=== PATIENT | male | born 1960 | race Caucasian/White ===

== ENCOUNTER 2018-07-24 08:59 | Inpatient (IN) | payer MEDICAID ==
--- NOTE | 2018-07-24 09:36 | EDPHY ---
HPI/HX/ROS/PE/MDM Narrative: CHIEF COMPLAINT:Right foot pain and swelling HPI: This patient is a 57 year old male who denies any pertinent past medical history. He complains of right foot pain and swelling which increased suddenly this weekend. He attributed this to the fact that he was wearing different kitchen shoes than usual this weekend. He states that his feet are often swollen because he usually walks everywhere, but this is much more severe. He is unable to walk far now due to pain. He does have obvious erythema and excoriations to the foot, but when questioned he is unclear about whether these skin changes are chronic or acute. He complains that the pain now radiates up into his leg. He does note history of similar symptoms 30 years ago after an injury with resultant cellulitis and abscess. He denies fever, nausea, vomiting , diarrhea, chest pain, difficulty breathing, or other associated symptoms. REVIEW OF SYSTEMS: A comprehensive 10 system review of systems is otherwise negative aside from elements mentioned in the history of present illness and medical decision making. PMH: Denies. SOCIAL HISTORY: Single. Lives in [place]. PHYSICAL EXAM: General:Patient is alert, in no acute distress. Malodorous. ENT:Eyes are normal to inspection. ENT inspection normal. Neck: Normal inspection. Full range of motion. Respiratory:No respiratory distress. Breath sounds normal bilaterally. Cardiovascular: Regular rate and rhythm. Strong peripheral pulses. Normal cap refill. Abdomen:The abdomen is nontender to palpation. There are no peritoneal signs. There are normal bowel sounds. Back: Normal to inspection. No tenderness to palpation. Skin: Normal color. No rash. Warm and dry. Extremities: Right foot: Diffusely swollen and erythematous, excoriation and weeping of skin on dorsum of foot, lymphatic streaking up leg. Otherwise normal appearance of extremities. Full range of motion. Neuro: Oriented x3. Normal motor function. Normal sensory function. ED Course: 57 y/o male presents with right foot pain and swelling. On exam, the foot is diffusely swollen and erythematous, with excoriation and weeping of the skin on the dorsum of the foot and lymphatic streaking up the leg. Presentation consistent with cellulitis. Plan for labs including CBC, chemistries. Plan for x -ray of the right foot. Reviewed foot x-ray. Soft tissue swelling apparent, no evidence of acute osseous abnormalities. Reviewed laboratory studies. WBC elevated at 15,000. Plan to administer 1g IV Vancomycin. Reassessed patient. Discussed laboratory and imaging results. Plan to admit for cellulitis. 10:28 Spoke with hospitalist service. Dr. Abdullahi accepts admission for foot cellulitis. - Data Points Imaging Results: Imaging Impressions Foot X-Ray 07/24/18 09:47 Impression: 1. Soft tissue swelling with no acute osseous findings 2. Hallux valgus with mild osteoarthritis. Imaging: I viewed and interpreted images myself Laboratory Results: Laboratory Results 07/24/18 09:38 07/24/18 09:38 07/24/18 07/24/18 09:38 09:38 WBC 15.20 10^3/uL H 10^3/uL (3.80-9.50) RBC 4.29 10^6/uL L 10^6/uL (4.40-6.38) Hgb 15.8 g/dL g/dL (13.7-17.5) Hct 47.0 % % (40.0-51.0) MCV 109.6 fL H fL (81.5-99.8) MCH 36.8 pg H pg (27.9-34.1) MCHC 33.6 g/dL g/dL (32.4-36.7) RDW 13.2 % % (11.5-15.2) Plt Count 242 10^3/uL 10^3/uL (150-400) MPV 9.1 fL fL (8.7-11.7) Neut % (Auto) 88.3 % H % (39.3-74.2) Lymph % (Auto) 3.4 % L % (15.0-45.0) Pacific % (Auto) 7.6 % % (4.5-13.0) Eos % (Auto) 0.1 % L % (0.6-7.6) Baso % (Auto) 0.3 % % (0.3-1.7) Nucleat RBC Rel Count 0.0 % % (0.0-0.2) Absolute Neuts (auto) 13.42 10^3/uL H 10^3/uL (1.70-6.50) Absolute Lymphs (auto) 0.52 10^3/uL L 10^3/uL (1.00-3.00) Absolute Monos (auto) 1.16 10^3/uL H 10^3/uL (0.30-0.80) Absolute Eos (auto) 0.02 10^3/uL L 10^3/uL (0.03-0.40) Absolute Basos (auto) 0.05 10^3/uL 10^3/uL (0.02-0.10) Absolute Nucleated RBC 0.00 10^3/uL 10^3/uL (0-0.01) Immature Gran % 0.3 % % (0.0-1.1) Immature Gran # 0.05 10^3/uL 10^3/uL (0.00-0.10) RBC/WBC/PLT Morphology TNP Platelet Estimate ADEQUATE (ADEQ) Oval Macrocytes 2+ H Sodium 136 mEq/L mEq/L (135-145) Potassium 4.2 mEq/L mEq/L (3.5-5.2) Chloride 97 mEq/L mEq/L (97-110) Carbon Dioxide 19 mEq/l L mEq/l (22-31) Anion Gap 20 mEq/L H mEq/L (6-14) BUN 14 mg/dL mg/dL (7-23) Creatinine 0.7 mg/dL mg/dL (0.7-1.3) Estimated GFR > 60 Glucose 100 mg/dL mg/dL (70-100) Calcium 9.2 mg/dL mg/dL (8.5-10.4) Medications Given: Discontinued Medications Vancomycin/Sodium Chloride (Vancomycin 1 Gm (Premix)) 250 mls @ 250 mls/hr IV EDNOW ONE PRN Reason: Protocol Stop: 07/24/18 11:14 Last Admin: 07/24/18 10:20 Dose: 250 mls General Time Seen by Provider: 07/24/18 09:08 Initial Vital Signs: Initial Vital Signs Temperature (C) 37.1 C 07/24/18 09:13 Heart Rate 114 H 07/24/18 09:13 Respiratory Rate 16 07/24/18 09:13 Blood Pressure 123/95 H 07/24/18 09:13 O2 Sat (%) 96 07/24/18 09:13 O2 Delivery Mode Room Air Allergies/Adverse Reactions: No Known Allergies Allergy (Verified 07/24/18 10:56) Home Medications: Medication Instructions Recorded NK [No Known Home Meds] 07/24/18 Departure - Departure Disposition: [facility] Inpatient Acute Clinical Impression: Cellulitis Qualifiers: Site of cellulitis: extremity Site of cellulitis of extremity: lower extremity Laterality: right Qualified Code(s): L03.115 - Cellulitis of right lower limb Condition: Fair Report Scribed for: Danish Lehman Report Scribed by: Kimberley Anthony Date of Report: 07/24/18 Time of Report: 10:24 Physician Review and Approval Statement: Portions of this note were transcribed by an ED scribe. I personally performed the history, physical exam, and medical decision making; and confirm the accuracy of the information in the transcribed note.
[2018-07-24 09:45] LABS: PLATELET COUNT 242 10^3/uL (150-400)
[2018-07-24] MEDS ORDERED: VANCOMYCIN HCL/NORMAL SALINE 250 ML IV ONE (10:15)
[2018-07-24] MEDS ORDERED: IBUPROFEN 200 MG TAB PO PRN (13:08)
[2018-07-24] MEDS ORDERED: ONDANSETRON DISINTEGRATING 4 MG TAB PO PRN (13:08)
[2018-07-24] MEDS ORDERED: HYDROCODONE/APAP 5/325 TAB PO PRN (13:08)
[2018-07-24] MEDS ORDERED: ONDANSETRON 4 MG/2 ML VIAL IVP PRN (13:08)
[2018-07-24] MEDS ORDERED: ACETAMINOPHEN 325 MG TAB PO PRN (13:08)
--- NOTE | 2018-07-24 14:31 | GHP ---
[f rep st] HISTORY AND PHYSICAL DATE OF ADMISSION: 07/24/2018 CHIEF COMPLAINT: Right foot pain and swelling. HISTORY OF PRESENT ILLNESS: The patient is a 57-year-old man, who is homeless, who comes in with inc reasing right foot pain. He states he is on his feet a lot and works in [employer] primarily. He was wearing a pair of shoes a few weeks ago that did not fit right and were quite uncomfortable. He star prema having more pain and swelling in his right lower extremity. He said he got a new pair of Crocs 2 weeks ago and initially his foot pain improved. However, over the weekend, the pain got worse with increasing swelling and discomfort to a point where he was having difficulty putting the Crocs on his foot. He denies any fevers, chills. No malaise. No nausea, vomiting, he states he otherwise feels well. He has a remote history of a staph infection on his left lower duncan, cannot recall if it was MRSA or not. He had a previous episode of cellulitis on his foot many years ago. REVIEW OF SYSTEMS: A 10-point review of systems was done and is otherwise negative except as stated in the HPI. PAST MEDICAL HISTORY: Negative. PAST SURGICAL HISTORY: Negative. FAMILY HISTORY: Both parents of cancer. SOCIAL HISTORY: He is currently homeless and lives in a snf. 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 He smokes about a pack a day. Alcohol use, he admits to 2 beers every day, but then did admit to drinking a half a pint of vodka last night to help him sleep. He denies any recreational drug use or any previous IV drug use. He h ad a recent tetanus shot within the last year. ALLERGIES: He has no known allergies. MEDICATIONS: None. PHYSICAL EXAMINATION: VITAL SIGNS: He has been afebrile. Heart rate 113. Blood pressure 133/83. Respirations 16 with 94% on room air. GENERAL: He is a disheveled, unkempt, 57-year-old man. He is in no distress. He is alert. HEENT: Pupils are equal. Extraocular movements intact. Mucous memb ranes are moist. Oropharynx is clear. NECK: Supple. HEART: Regular without murmur, gallop, or ru b. LUNGS: Clear. Slightly diminished bilaterally, but no wheeze, rales, or rhonchi. ABDOMEN: Sof t. No masses. MUSCULOSKELETAL: He has no joint deformities or effusions noted. SKIN: He has exco riations and dry skin on his right foot with weeping and serous drainage throughout the dorsum aspect . In between his toes, he has some cracking. No obvious abscesses noted. He does have some erythem a extending up his duncan in a streaking-like manner. His left foot, he does have some dry, cracked sk in on the medial dorsum surface as well, but no weeping noted on that foot. Pulses intact bilaterall y. LYMPH NODES: He does have some tender lymphadenopathy in his right groin. NEUROLOGIC: He does have slight diminished sensation on both of his feet that has been chronic. PSYCHIATRIC: He is aler t, appropriate, although his history is a little bit scattered and difficult to obtain. LABORATORY DATA: CBC shows a white count of 15.2 with a hemoglobin of 15.8 and an MCV of 109.6 and n ormal platelet count. Chemistries do show CO2 of 19, normal renal function. DIAGNOSTICS: Foot x-ray on the right foot shows soft tissue swelling with no acute osseous findings. ASSESSMENT AND PLAN: 1. 57-year-old homeless man, probable alcoholic, presents with cellulitis and multiple excoriations and weeping areas on his right dorsum of his foot. He is at risk for Staphylococcus aureus given his homelessness, as well as the open sores noted on his foot. We will continue vancomycin and can cruz sition to oral antibiotics to include both streptococcal and staphylococcal coverage at the time of d ischarge should he improve significantly on intravenous antibiotics. If he does not have significant improvement in the next 24 to 48 hours, would consider Infectious Disease consult. 2. Macrocytosis without anemia, unclear etiology. We will check a vitamin B12, folate, and TSH. Jurgen dupree, I suspect he is an alcoholic and drinks more significantly than he is admitting to at this [facility]. We will watch for evidence of withdrawal. However, we will not put him on the Clinical [place] Withdrawal Assessment protocol at this time. 3. Ongoing tobacco use. 4. Homelessness. Patient is quite unkempt at this time, and his work history and social history do not quite match. He will need to establish care with [facility] at the time of discharge for fo llow-up needs. 5. Cellulitis of his right foot with mild sepsis as noted by tachycardia and leukocytosis. /[id number]/MODL
[2018-07-24] MEDS: VANCOMYCIN 1.25 GM in NS 250 ML IV SCH (21:47)
[2018-07-25 05:08] LABS: PLATELET COUNT 231 10^3/uL (150-400)
[2018-07-25] MEDS: VANCOMYCIN 1.25 GM in NS 250 ML IV SCH ×2 (10:17→21:46)
[2018-07-25] MEDS: ENOXAPARIN 40 MG/0.4 ML SYR SC SCH (10:24)
--- NOTE | 2018-07-25 13:10 | ASMTCMCOM ---
CM Note CM Note Notes: Pt who is homeless in with foot cellulitis, reports daily ETOH use. PT eval pending. Pt on IV vanco now, will see if he improves and may be able to d/c on oral antibiotics. ID not consulted yet. Pt may want [facility] bed and follow up at [facility]. CM to follow. D/c plan is TBD Date Signed: 07/25/2018 01:10 PM Electronically Signed By:JORY Kiser
--- NOTE | 2018-07-25 13:39 | HOSPPROG ---
Hospitalist Progress Note Assessment/Plan: 57-year-old homeless male presents the emergency room with complaints of foot wound. 1st encounter with the patient, chart reviewed. # right lower extremity foot wound -continue IV vancomycin -wound culture sent -Infectious Disease consult, discussed with Dr. Maximo Hills -continue wound care # pain -stable # macrocytosis without anemia -B12 folate normal -unclear etiology -potentially related alcohol use # tobacco abuse -recommend cessation # disposition -unclear -will need to provide continued IV antibiotic therapy -continue wound care Subjective: Still having significant right lower extremity pain. No other issues. Objective: Vital Signs Temp Pulse Resp BP Pulse Ox 36.7 C 86 16 106/70 92 07/25/18 11:55 07/25/18 11:55 07/25/18 11:55 07/25/18 11:55 07/25/18 11:55 Laboratory Results 07/25/18 04:26 07/25/18 04:26 07/24/18 07/25/18 07/26/18 05:59 05:59 05:59 Intake Total 1600 Balance 1600 - Physical Exam Constitutional: appears nourished, uncomfortable, No obese Eyes: PERRL, anicteric sclera, EOMI Ears, Nose, Mouth, Throat: moist mucous membranes, hearing normal, ears appear normal Cardiovascular: regular rate and rhythym, No JVD, No edema Respiratory: no respiratory distress, no rales or rhonchi, reduced air movement Gastrointestinal: normoactive bowel sounds, No tenderness, No ascites Skin: warm, abrasion, erythema, induration Musculoskeletal: normal joint ROM, no joint effusions, generalized weakness Neurologic: AAOx3 Psychiatric: interacting appropriately, not anxious, not encephalopathic, thought process linear ICD10 Worksheet Patient Problems: Problems Problem Status Onset Cellulitis Acute
--- NOTE | 2018-07-25 14:36 | WOCRNPDOC ---
WOCRN Advanced Assessment Note - Skin Integrity Problem, Advanced Assess Right Dorsal Foot Dressing Type: Adaptic Touch Dressing Description: Intact, Shadowed Exudate Amount: Scant Exudate Characteristic(s): Serosanguinous Integumentary Issue Intervention: Dressing Changed Sally Wound Tissue: Hot, Swollen, Erythema Marked by Wound RN Sally Wound Swelling: Mild Wound Bed Constitution: Red/Lovell - Non Granular Tissue (100%) Wound Edges: Attached Site Odor: Slight, Musky Site Measurement - Head-to-Toe Length X Width X Depth (cm): [id number] Skin Integrity Problem Comment: Per patient report area of skin on dorsal foot started denuding over the last week. The area did not blister first. Patient reported that a pair of shoes rubbed on right lateral 5th metatarsal head and caused an open wound. That area is swollen and tender now. The wound on the dorsal foot is also painful, and has areas of partial thickness opening mixed in with intact skin. The area was cleaned with ns and gauze. Skin prep was applied sally wound. Small area of maceration between 1st and 2nd digit in the web of the toe was clean and also skin prepped. Puracyn gel applied to wound bed. Covered with Mepilex XT dressing. Secured with Kong. Wound care will follow. Arash LIN performed wound care. Dr. Hills visualized wound.
--- NOTE | 2018-07-25 16:10 | GCON ---
[f rep st] CONSULTATION INFECTIOUS DISEASE CONSULTATION DATE OF CONSULTATION: 07/25/2018 REFERRING PHYSICIAN: Katharine Hamilton NP REASON FOR CONSULTATION: Right lower extremity cellulitis. HISTORY OF PRESENT ILLNESS: The patient is a 57-year-old homeless male who I am asked to see in consultation for right lower extremity cellulitis. The patient describes wearing a shoe that he felt was too tight recently and developed excessive rubbing over the lateral aspect of the right foot. This subsequently also involved the medial portion of the foot. He also describes approximately 2 weeks ago experiencing exposure to snow and slush when walking to and from work. Over the last week, he has developed breakdown of skin over the dorsal aspect of the foot accompanied by erythema, pain and swelling. Subsequently, he also noted a red streak over the right lower leg. He also has noted a small tender area in the right inguinal region. He has not experienced fever or chills. He has not had nausea, vomiting, or diarrhea. He has not been elevating his leg significantly. 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 The right foot has also been associated with malodor. Given the above findings, I am now asked to assist in his ongoing management. PAST MEDICAL HISTORY: Staph infection of the left lower extremity approximately 30 years ago, right foot infection after dropping marble on his foot many years ago; denies any prior history of known MRSA skin and soft tissue infection. PAST SURGICAL HISTORY: Incision and drainage of right foot. CURRENT MEDICATIONS: Vancomycin 1.25 g IV q.12 hours, Lovenox 40 mg subcu daily , Motrin 400 mg as needed every 4 hours. ALLERGIES: No known drug allergies. SOCIAL HISTORY: Patient smokes 1/2 pack per day. The patient notes that he drinks alcohol in moderation. No drug use history. He works in restaurants. He is currently homeless and does stay at the care home. FAMILY HISTORY: Mother with brain tumor of unclear further characterization. REVIEW OF SYSTEMS: Outside that noted in the HPI, the remainder of 10-system review is unremarkable. PHYSICAL EXAMINATION: VITAL SIGNS: Temperature 36.7, heart rate 86, respiratory rate 16, blood pressure 106/70, oxygen saturation 92% on room air. GENERAL: Patient is well nourished, well developed, in no acute distress. He appears nontoxic. HEENT: There is no scleral icterus, conjunctival injection, or conjunctival petechiae. Oropharynx shows moist mucous membranes with dentition being in poor repair. No nasal discharge or sinus tenderness. NECK: Supple without palpable lymphadenopathy or thyromegaly. CHEST: Clear to auscultation bilaterally without adventitious sounds. The respiratory effort is normal. CARDIOVASCULAR: Regular rate and rhythm without murmurs, gallops, or rubs. ABDOMEN: Soft, nontender, nondistended. There is no palpable organomegaly. Bowel sounds are present. MUSCULOSKELETAL: The right foot shows erythema, edema and multiple areas of denuded skin overlying the dorsal aspect of the foot without purulent discharge being present; there is some maceration extending into the web spaces of the toes with mild crusting at margins. There is mild malodor present. There is no palpable fluctuance. Erythema extends in a lymphangitic distribution along the right lower leg which is nontender to palpation. LYMPHATICS: See musculoskeletal exam. There is a 1 x 2 cm mobile, tender lymph node in the right inguinal region. NEUROLOGIC: Patient is alert and interacts appropriately with examiner. Cranial nerves 2 through 12 are grossly intact. Sensation is grossly intact. Muscle tone and bulk are normal. SKIN: See musculoskeletal exam. No stigmata of endocarditis. Skin is warm and dry to touch. LABORATORY DATA: White blood cell count 8.9, hematocrit 42.6, platelets 231, neutrophils 70%, and lymphocytes 14%, monocytes 13%. Serum creatinine 0.8, AST 47, ALT 49, bilirubin 1.6, alkaline phosphatase 81, albumin 3.6. Foot x-ray shows soft tissue swelling. IMPRESSION: 1. Right lower extremity cellulitis with accompanying lymphangitis: Most likely, this will be due to Staphylococcus aureus or beta-hemolytic streptococci. Given the patient's homelessness, methicillin-resistant Staphylococcus aureus is of consideration despite lack of purulent drainage. Suspect patient may have developed maceration when his foot was wet, leading to subsequent skin and soft tissue infection. Does not appear to have a drainable focus present on physical examination. 2. Homelessness: We will screen for hepatitis A immunity, given local prevalence of hepatitis A infection. RECOMMENDATIONS: 1. Agree with vancomycin 1.25 g IV q.12 hours. 2. Right lower extremity elevation. 3. We will check hepatitis A total antibody to assess for immunity with plans for vaccination if not immune. 4. Swab obtained to screen for MRSA colonization of right lower extremity. Thank for this consultation. We will continue to follow patient with you. /[id number]/MODL MTDD
[2018-07-26 09:31] LABS: HEPATITIS A ANTIBODY TOTAL NEGATIVE (NEGATIVE)
[2018-07-26] MEDS: ENOXAPARIN 40 MG/0.4 ML SYR SC SCH (09:53)
[2018-07-26] MEDS: VANCOMYCIN 1.25 GM in NS 250 ML IV SCH (09:56)
--- NOTE | 2018-07-26 12:53 | HOSPPROG ---
Hospitalist Progress Note Assessment/Plan: 57-year-old homeless male presents the emergency room with complaints of foot wound. 1st encounter with the patient, chart reviewed. # right lower extremity foot wound w associated lymphangitis (MRSA) -continue IV vancomycin -continue wound care -reviewed her care w Dr Rivera, he will ask Dr Mcdowell to evaluate Brandon's foot, has some purulent drainage # pain -has pain w ambulation but overall controlled # macrocytosis without anemia -B12 folate normal -unclear etiology -potentially related alcohol use # tobacco abuse -recommend cessation -doesn't want a patch or gum *homelessness #plan: Dr Mcdowell to see (appreciate her involvement), contact precautions. Subjective: Brandon is feeling fine except for some difficulty w walking. Objective: Vital Signs Temp Pulse Resp BP Pulse Ox 36.7 C 93 16 113/93 H 95 07/26/18 07:48 07/26/18 07:48 07/26/18 07:48 07/26/18 07:48 07/26/18 07:48 Microbiology 07/25/18 14:06 Gram Stain - Final Foot - Swab 07/25/18 14:06 MRSA Culture - Final Foot - Anaerobic Tube/Swab - Physical Exam Constitutional: uncomfortable Eyes: PERRL Ears, Nose, Mouth, Throat: hearing normal Respiratory: no respiratory distress Skin: warm, other (right foot w dressing in place, has some lymphangitic streaking up the duncan area) Musculoskeletal: generalized weakness Neurologic: AAOx3 Psychiatric: interacting appropriately ICD10 Worksheet Patient Problems: Problems Problem Status Onset Cellulitis Acute
--- NOTE | 2018-07-26 15:30 | PCMIDPN ---
Assessment/Plan: Assessment: 57-year-old man with right foot deep soft tissue infection likely due to MRSA. Spontaneous drainage of purulent material lateral aspect of the 5th metatarsal head on the right suggest organization of deep infected tissue potentially forming an abscess. Asked surgery to evaluate for potential debridement. Overall he remains hemodynamically stable will increase vancomycin slowly due to the presence of MRSA. 1. Right foot deep soft tissue infection likely due to MRSA 2. Possible lateral right foot deep tissue abscess with spontaneous drainage Plan: 1. Continue vancomycin; increase dose to 1.5 g q.12 hours 2. Surgical consult to evaluate for need for debridement particularly considering purulent drainage 3. Reviewed in detail potential side effects of vancomycin to include: allergy, rash, nausea, antibiotic-associated diarrhea, Clostridioides difficile colitis, acute kidney injury. Ayaan Rivera MD Infectious Diseases 07/26/18 15:34 Subjective: No fever or chills in the past 24-hours. Tolerating oral diet with solids and liquids. No diarrhea, nausea, or other GI symptoms. Appetite improving. Ambulating with with pain in the right foot primarily the 1st few steps. Improved since admission but not back to baseline health. Objective: Vital Signs Temp Pulse Resp BP Pulse Ox 36.7 C 93 16 113/93 H 95 07/26/18 07:48 07/26/18 07:48 07/26/18 07:48 07/26/18 07:48 07/26/18 07:48 Microbiology 07/25/18 14:06 Gram Stain - Final Foot - Swab 07/25/18 14:06 MRSA Culture - Final Foot - Anaerobic Tube/Swab Medications Generic Name Dose Route Start Last Admin Trade Name Freq PRN Reason Stop Dose Admin Vancomycin HCl 1.25 gm/ Sodium 250 mls @ 166.667 mls/hr 07/24/18 22:00 09:56 Chloride IV 08/23/18 21:59 250 mls Q12H [facility] Microbiology 07/25/18 14:06 Foot - Swab Gram Stain - Final 07/25/18 14:06 Foot - Anaerobic Tube/Swab MRSA Culture - Final 07/25/18 14:06 Foot - Swab Wound Culture - Preliminary MRSA Laboratory Tests 07/24/18 07/24/18 07/25/18 09:38 09:38 04:26 WBC 15.20 H 8.88 Hgb 15.8 14.8 Plt Count 242 231 Absolute Neuts (auto) 13.42 H 6.20 Absolute Lymphs (auto) 0.52 L 1.28 Creatinine 0.7 Vancomycin Trough 07/25/18 07/25/18 04:26 21:00 WBC Hgb Plt Count Absolute Neuts (auto) Absolute Lymphs (auto) Creatinine 0.8 Vancomycin Trough 8.2 - Physical Exam General Appearance: no apparent distress, non-toxic EENT: No scleral icterus Respiratory: No respiratory distress, No accessory muscle use Neck: full range of motion, supple Extremities: other (Lateral right foot at the 5th metatarsal head spontaneous drainage of purulent material, increased drainage with movement of the toe; no expressible purulence from the area; dorsum of the foot dressing not taken down to completion but deep soft tissue infection evident) Abdomen: normal bowel sounds, non-tender, soft, No distended, No guarding Skin: erythema (Right dorsum of the foot spreading proximally to the ankle) Neuro/Psych: alert, normal mood/affect, oriented x 3, No confused - Time Spent With Patient Time Spent with Patient: greater than 25 minutes Time Spent with Patient: Greater than 25 minutes spent on this patients care, greater than 50% of time spent counseling, educating, and coordinating care regarding the above mentioned plan. ICD10 Worksheet Patient Problems: Problems Problem Status Onset Cellulitis Acute
--- NOTE | 2018-07-26 16:02 | ASMTCMCOM ---
CM Note CM Note Notes: Met with pt, he was admitted to the hospital for foot cellulitis, due to ill fitting shoes he developed a foot wound that got infected. He is a homeless gentleman, [facility] and has been through [facility], although he doesn't always want to stay there and will go to other places. He does not have a pcp and does not have much of a past medical history. For a discharge plan, he may want a reserved bed at the jail. The physical therapist has given him a pair of crutches to use and he has an appt scheduled for at 11am with Mellissa Amaro at [facility]. DC Plan: Jail Date Signed: 07/26/2018 04:01 PM Electronically Signed By:Olga Harp RN
--- NOTE | 2018-07-26 16:20 | PDMN ---
Medical Necessity Medical necessity: Change to IP, as of 07/25/18, per [employer] [facility] & [facility]; los >2 mn for ongoing management of RLE foot infection likely r/t MRSA w/possible deep tissue abscess & significant pain; requiring further monitoring, IV abx, ID/Surgical consults, pain management & wound care; hx homelessness
--- NOTE | 2018-07-26 17:43 | SOAPPROG ---
SOAP Progress Note Assessment/Plan: Assessment: will dictate full consult pain out of proportion fluid from 5th met head wound no osteo on x ray MRI to see if underlying abscess - I think due to pain would need I&D in OR and would like better pre-operative planning Plan: 07/26/18 17:42 Objective: Vital Signs Temp Pulse Resp BP Pulse Ox 36.8 C 72 16 120/84 H 96 07/26/18 16:00 07/26/18 16:00 07/26/18 16:00 07/26/18 16:00 07/26/18 16:00 Microbiology 07/25/18 14:06 Gram Stain - Final Foot - Swab 07/25/18 14:06 MRSA Culture - Final Foot - Anaerobic Tube/Swab ICD10 Worksheet Patient Problems: Problems Problem Status Onset Cellulitis Acute
--- NOTE | 2018-07-26 19:04 | GCON ---
[f rep st] CONSULTATION DATE OF CONSULTATION: 07/26/2018 CHIEF COMPLAINT: Acute MRSA cellulitis of right lower extremity; weeping of open wounds of plantar surface of right foot. HISTORY OF PRESENT ILLNESS: This is a very pleasant 57-year-old gentleman who states that he has had increasing foot pain over the last week or so. 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 He reports that he has had issues with his shoes rubbing, but in the past week or so he has noticed increasing pain where his shoes rub on his pinky toe. This progressed to swelling, erythema and open, weeping wounds on the plantar surface of his right foot, for which he presented to the ED. REVIEW OF SYSTEMS: He denies fevers, chills, sweats/night sweats, malaise, or nausea or vomiting. PAST MEDICAL HISTORY: He reports a history of Staphylococcus (unknown if MSSA or MRSA) on chin; cellulitis of the foot; tetanus shot within the last year, per ED. PAST SURGICAL HISTORY: None. FAMILY MEDICAL HISTORY: His parents of cancer. 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 He is currently homeless, living at a care home. He reports being very active, hiking when not working and preferring walking as his primary means of travel. Per ED report, the patient smokes 1 pack-a-day and reports drinking 2 beers daily. There was an incident of drinking a half-pint of vodka to "help him sleep." ALLERGIES: No known drug allergies. MEDICATIONS: None. PHYSICAL EXAMINATION: VITAL SIGNS: On exam, blood pressure 120/84, heart rate 72, respirations 16, O2 is 96, temperature 36.8. GENERAL: This is a very pleasant, well-nourished and relatively well-groomed 57-year-old gentleman. HEENT: Normocephalic. No gross hearing deficits. Mucous membranes moist. Pupils are equal and round, no scleral icterus. RESPIRATORY: No increased work of breathing. CARDIAC: No peripheral edema. SKIN: The patient has open , weeping wounds across the plantar surface of the right foot. The wound measures 11 cm x 13 cm x 0.01 cm length, width, depth. The patient has minimal serosanguinous exudates from these wounds. The patient also has a callus-like wound on the lateral surface of the pinky toe. There appears to be purulent exudate that oozes when patient wiggles toes or moves. I attempted to probe this area with a Q-tip, but it was too painful for the patient. PSYCHIATRIC: Mood and affect normal. ASSESSMENT/PLAN: This is a 57-year-old gentleman who appears to have an acute infection of what could potentially be a chronic wound secondary to ill-fitting footwear. I would like to get an MRI to evaluate if underlying abscess vs phlegmon vs osteonear the 5th metatarsal. Although I would like to do bedside debridement if possible, I am concerned that he will not be able to tolerate even an injection. Continue antibiotics per Infectious Disease. Dressing changes per Wound Care. Continue management per hospitalist team. /[id number]/MODL MTDD
[2018-07-26] MEDS ORDERED: GADOBUTROL 10 ML VIAL IVP ONE (20:37)
[2018-07-26] MEDS: VANCOMYCIN 1.5 GM in NS 250 ML IV SCH (22:59)
[2018-07-27] MEDS ORDERED: BUPIVACAINE 0.5% 30 ML SDV ONE (07:59)
[2018-07-27] MEDS ORDERED: LR 1,000 ML IV ONE (08:12)
--- NOTE | 2018-07-27 08:42 | PDANEPAE ---
ANE History of Present Illness I&D R foot ANE Past Medical History - Pulmonary History Hx Oxygen in Use at Home: No Hx Sleep Apnea: No Sleep Apnea Screening Result - Last Documented: Negative - Endocrine History Hx Diabetes: No - Chronic Pain History Chronic Pain: No ANE Review of Systems Review of systems is: negative Review of Systems: - Exercise capacity Exercise capacity: >=4 METS ANE Patient History - Allergies Allergies/Adverse Reactions: No Known Allergies Allergy (Verified 07/24/18 10:56) - Home Medications Home Medications: NK [No Known Home Meds] 07/24/18 [Last Taken Unknown] - NPO status NPO Status: no food or drink >8 hours NPO Since - Liquids (Date): 07/27/18 NPO Since - Liquids (Time): 00:00 NPO Since - Solids (Date): 07/27/18 NPO Since - Solids (Time): 00:00 - Smoking Hx Smoking Status: Current every day smoker - Alcohol Use Alcohol Use: None ANE Labs/Vital Signs - Labs Result Diagrams: 07/25/18 04:26 07/25/18 04:26 - Vital Signs Blood Pressure: 121/85 Heart Rate: 89 Respiratory Rate: 16 O2 Sat (%): 95 Height: 185.42 cm Weight: 78.2 kg ANE Physical Exam - Airway Neck exam: FROM Mallampati Score: Class 2 - Pulmonary Pulmonary: no respiratory distress - Cardiovascular Cardiovascular: regular rate and rhythym ANE Anesthesia Plan Anesthesia Plan: MAC
[2018-07-27] MEDS ORDERED: PROPOFOL/EMULSION 500 MG/50 ML BOTTLE IV ONE ×2 (08:50→09:24)
[2018-07-27] MEDS ORDERED: LIDOCAINE 2% JELLY 6 ML TOPICAL SYR ONE (08:51)
[2018-07-27] MEDS ORDERED: LIDOCAINE 2% 100 MG/5 ML SYR ONE (08:51)
--- NOTE | 2018-07-27 09:26 | POSTOPPROG ---
Post Op Note Date of Operation: 07/27/18 Surgeon: Radha Mcdowell Anesthesiologist: angel Anesthesia: IV Sedation Pre-op Diagnosis: MRSA abscess Post-op Diagnosis: same Indication: 57yo M with MRSA abscess R 5th toe, pain out of proportion Procedure: I&D R 5th toe Findings: small fluid collection, no bone exposed.no purulence Inf/Abcess present in the surg proc area at time of surgery?: Yes Depth: Superfical (Skin SQ) EBL: Minimal Complications: none immediately post-op Specimen(s): none
[2018-07-27] MEDS ORDERED: PHENYLEPHRINE HCL 100 MCG/ML SYR IVP PRN (09:43)
[2018-07-27] MEDS ORDERED: LR 500 ML IV PRN (09:43)
[2018-07-27] MEDS ORDERED: oxyCODONE IR 5 MG TAB PO PRN (09:43)
[2018-07-27] MEDS ORDERED: ACETAMINOPHEN 500 MG TAB PO PRN (09:43)
[2018-07-27] MEDS ORDERED: NALOXONE HCL 0.4 MG/ML INJ IVP PRN (09:43)
[2018-07-27] MEDS ORDERED: ONDANSETRON 4 MG/2 ML VIAL IVP PRN (09:43)
[2018-07-27] MEDS ORDERED: DEXAMETHASONE 4 MG/ML VIAL IVP PRN (09:43)
[2018-07-27] MEDS ORDERED: fentaNYL 100 MCG/2 ML INJ IVP PRN (09:43)
[2018-07-27] MEDS ORDERED: ALBUTEROL 3 ML DEYVIAL IH PRN (09:43)
--- NOTE | 2018-07-27 09:59 | POSTANESTH ---
Post Anesthetic Evaluation Cardiovascular Status: Normal, Stable, Similar to Pre-Op Cond Respiratory Status: Normal, Stable, Similar to Pre-op Cond. Level of Consciousness/Mental Status: Can Participate in Eval, Mildly Sleepy, Arousable Pain Control: Adequate, Prn Tx Ordered Nausea/Vomiting Control: Adequate, Prn Tx Ordered Complications Possibly Related to Anesthesia: None Noted
[2018-07-27] MEDS ORDERED: HEPATITIS A VIRUS VACCINE 1,440 UNIT/ML SYRINGE IM ONE (10:05)
[2018-07-27] MEDS: VANCOMYCIN 1.5 GM in NS 250 ML IV SCH ×2 (10:40→22:19)
[2018-07-27] MEDS: ENOXAPARIN 40 MG/0.4 ML SYR SC SCH (11:39)
--- NOTE | 2018-07-27 13:08 | WOCRNPDOC ---
WOCRN Advanced Assessment Note - Skin Integrity Problem, Advanced Assess Right Dorsal Foot Dressing Type: Kerlix, Telfa Dressing Description: Intact, Shadowed Closure Description: Not Approximated Exudate Amount: Scant Exudate Color: Reddish/Yellow Exudate Characteristic(s): Serosanguinous Integumentary Issue Intervention: Dressing Changed, Hydrogel Applied Radha Wound Tissue: Erythema, Painful/Tender Radha Wound Swelling: Mild Wound Bed Color: Leith-Hatfield Wound Bed Constitution: Smooth Tissue Wound Edges: Attached, Well Defined, Irregular Site Measurement - Head-to-Toe Length X Width X Depth (cm): 12x11.5x0.2 Skin Integrity Problem Comment: Patient had an I&D of right foot in the OR with Dr. Mcdowell this AM. Seen with RILEY Ha for application of alternate dressing per Dr. Mcdowell request. Both RILEY Ha and the patient report significant improvement to redness radha-wound as well as improvement to wound bed s/p I&D. As I don't see any further infective process, will change order from Puracyn to wound gel ( found in all supply rooms). Wound care will round again later next week. Right Lateral Distal Foot Surgical Wound/Incision Dressing Type: Kerlix, Telfa Dressing Description: Intact, Shadowed Closure Description: Not Approximated Exudate Amount: Minimal Exudate Color: Red Exudate Characteristic(s): Bloody Integumentary Issue Intervention: Dressing Changed, Hydrogel Applied Radha Wound Tissue: Erythema, Painful/Tender Radha Wound Swelling: Mild Wound Bed Color: Red Wound Bed Constitution: Smooth Tissue Wound Edges: Attached, Well Defined Site Measurement - Head-to-Toe Length X Width X Depth (cm): 1x1.5x0.2 Skin Integrity Problem Comment: Patient s/p I&D in the OR this AM with Dr. Mcdowell. Assisted RILEY Ha with dressing change and application of wound gel. Wound bed probed for depth which is minimal, no tunneling. Wound care will round again later next week.
--- NOTE | 2018-07-27 13:25 | HOSPPROG ---
Hospitalist Progress Note Assessment/Plan: 57-year-old homeless male presents the emergency room with complaints of foot wound. # right lower extremity foot wound w associated lymphangitis (MRSA) -continue IV vancomycin -s/p I & D with Dr Mcdowell -no osteo on imaging # pain -has pain w ambulation but overall controlled # macrocytosis without anemia -B12 folate normal -potentially related alcohol use # tobacco abuse -recommend cessation -doesn't want a patch or gum *homelessness #plan: to get Hepatitis A vaccination, hopefully can go on oral abx soon. Met with the patient alongside w Dr Hills. Subjective: Brandon has no complaints. Objective: Vital Signs Temp Pulse Resp BP Pulse Ox 36.8 C 68 16 125/89 H 95 07/27/18 12:30 07/27/18 12:30 07/27/18 12:30 07/27/18 12:30 07/27/18 12:30 Microbiology 07/25/18 14:06 Gram Stain - Final Foot - Swab 07/25/18 14:06 MRSA Culture - Final Foot - Anaerobic Tube/Swab 07/26/18 07/27/18 07/28/18 05:59 05:59 05:59 Intake Total 525 800 Balance 525 800 - Physical Exam Constitutional: no apparent distress, appears nourished Eyes: PERRL Ears, Nose, Mouth, Throat: hearing normal Respiratory: no respiratory distress Skin: warm, other (right foot w minimal lymphangitis on duncan area, evaluated top area of the foot, has some redness and excoriated ) Musculoskeletal: generalized weakness Neurologic: AAOx3 Psychiatric: interacting appropriately ICD10 Worksheet Patient Problems: Problems Problem Status Onset Cellulitis Acute
--- NOTE | 2018-07-27 13:52 | PCMIDPN ---
Assessment/Plan: Assessment/Plan: * Right lower extremity cellulitis with small subcutaneous abscess right 5th toe status post incision and drainage: Swab culture showing growth of MRSA. Clinically improved with antibiotic therapy and status post debridement. Lymphangitis over right lower extremity significantly less prominent. MRI does not show evidence of osteomyelitis and no exposed bone present at time of incision and drainage. Continue vancomycin with goal of transitioning to oral doxycycline or Bactrim over next 24-48 hours. Continue to follow vancomycin trough and renal function over time. * Healthcare maintenance: Hepatitis a total antibody negative. Will vaccinate for hepatitis a given risk of acute hepatitis a based on homelessness. 07/27/18 13:49 07/27/18 13:52 Subjective: Patient status post incision and drainage of right 5th toe with small fluid collection noted without exposed bone or purulence. Patient feels like right foot has less pain and redness present. Objective: Vital Signs Temp Pulse Resp BP Pulse Ox 37.0 C 91 18 125/89 H 93 07/27/18 13:31 07/27/18 13:31 07/27/18 13:31 07/27/18 13:31 07/27/18 13:31 Microbiology 07/25/18 14:06 Gram Stain - Final Foot - Swab 07/25/18 14:06 MRSA Culture - Final Foot - Anaerobic Tube/Swab 07/26/18 07/27/18 07/28/18 05:59 05:59 05:59 Intake Total 525 800 Balance 525 800 Vancomycin # 3 Laboratory Tests 07/25/18 21:00 Hepatitis A Ab Total NEGATIVE - Physical Exam General Appearance: alert, no apparent distress EENT: No scleral icterus Extremities: inflammation (Erythema over dorsal aspect of right foot less prominent; lower portion not examined due to recent surgical procedure and dressing not fully taken down distally) Lymphatic: other (Right lower extremity lymphangitis significantly less prominent without associated tenderness) ICD10 Worksheet Patient Problems: Problems Problem Status Onset Cellulitis Acute
[2018-07-28] MEDS: VANCOMYCIN 1.5 GM in NS 250 ML IV SCH ×2 (09:05→22:23)
[2018-07-28] MEDS: ENOXAPARIN 40 MG/0.4 ML SYR SC SCH ×2 (09:05→09:13)
--- NOTE | 2018-07-28 10:20 | SOAPPROG ---
SOAP Progress Note Assessment/Plan: Assessment/Plan: 57-year-old homeless male presents the emergency room with complaints of foot wound, +right lower extremity foot wound w associated lymphangitis (MRSA) s/p I&D. -dressing changed. wound clean. redness receded from markings. palpable pedal pulse. -continue IV vancomycin -no osteo on imaging appreciate medicine and I&D input and care. likely won't see patient tomorrow unless concerns but our team will continue to follow 07/28/18 10:13 Objective: Vital Signs Temp Pulse Resp BP Pulse Ox 36.6 C 80 16 130/74 H 92 07/28/18 07:27 07/28/18 07:27 07/28/18 07:27 07/28/18 07:27 07/28/18 07:27 Microbiology 07/25/18 14:06 Gram Stain - Final Foot - Swab Wound Culture - Final MRSA Streptococcus Pyogenes Grp A 07/25/18 14:06 MRSA Culture - Final Foot - Anaerobic Tube/Swab Laboratory Results 07/28/18 07:15 07/27/18 07/28/18 07/29/18 05:59 05:59 05:59 Intake Total 525 2800 Balance 525 2800 ICD10 Worksheet Patient Problems: Problems Problem Status Onset Cellulitis Acute
--- NOTE | 2018-07-28 13:11 | HOSPPROG ---
Hospitalist Progress Note Assessment/Plan: 57-year-old homeless male presents the emergency room with complaints of foot wound. Evaluated Mr Dwaine w Dr Hills. # right lower extremity foot wound w associated lymphangitis (MRSA) & stept A -continue IV vancomycin -s/p I & D with Dr Mcdowell -no osteo on imaging # pain -no significant pain # macrocytosis without anemia -B12 folate normal -potentially related alcohol use # tobacco abuse -recommend cessation -doesn't want a patch or gum *homelessness #plan: he will need a few more days of IV antibiotics Subjective: Brandon is not c/o pain w activity. His foot is feeling better. Objective: Vital Signs Temp Pulse Resp BP Pulse Ox 36.7 C 78 16 110/77 94 07/28/18 12:09 07/28/18 12:09 07/28/18 12:09 07/28/18 12:09 07/28/18 12:09 Microbiology 07/25/18 14:06 Gram Stain - Final Foot - Swab Wound Culture - Final MRSA Streptococcus Pyogenes Grp A 07/25/18 14:06 MRSA Culture - Final Foot - Anaerobic Tube/Swab Laboratory Results 07/28/18 07:15 07/27/18 07/28/18 07/29/18 05:59 05:59 05:59 Intake Total 525 2800 Balance 525 2800 - Physical Exam Constitutional: no apparent distress, appears nourished Eyes: PERRL Respiratory: no respiratory distress Gastrointestinal: normoactive bowel sounds Skin: warm, other (right foot red and excoriated on the dorsal area of the foot , warm, redness extends to duncan area) Musculoskeletal: generalized weakness Neurologic: AAOx3 Psychiatric: interacting appropriately ICD10 Worksheet Patient Problems: Problems Problem Status Onset Cellulitis Acute
--- NOTE | 2018-07-28 13:54 | PCMIDPN ---
Assessment/Plan: Assessment/Plan: * Right lower extremity cellulitis with small subcutaneous abscess right 5th toe status post incision and drainage: Cultures with growth of MRSA and group A Streptococcus. Clinically improving post incision and drainage and with antibiotic therapy. Still with residual cellulitis present over dorsum of foot with continued need for IV antibiotic therapy. Vancomycin trough appropriate today. Anticipate may be able to transition to oral antibiotic therapy such as doxycycline and amoxicillin in next 48 hr if shows continued clinical improvement. * Healthcare maintenance: Hepatitis A total antibody negative. Received initial hepatitis a vaccine and will require 2nd vaccine and 6 months which was discussed with patient today. 07/28/18 13:51 07/28/18 13:53 Subjective: Patient with mild residual right foot pain. Up ambulating with PT earlier today. Notes he is elevating leg when in bed. Objective: Vital Signs Temp Pulse Resp BP Pulse Ox 36.7 C 78 16 110/77 94 07/28/18 12:09 07/28/18 12:09 07/28/18 12:09 07/28/18 12:09 07/28/18 12:09 Microbiology 07/25/18 14:06 Gram Stain - Final Foot - Swab Wound Culture - Final MRSA Streptococcus Pyogenes Grp A 07/25/18 14:06 MRSA Culture - Final Foot - Anaerobic Tube/Swab Laboratory Results 07/28/18 07:15 07/27/18 07/28/18 07/29/18 05:59 05:59 05:59 Intake Total 525 2800 Balance 525 2800 Vancomycin # 4 Foot culture with growth of MRSA and group A Streptococcus Laboratory Tests 07/28/18 07:15 Vancomycin Trough 14.4 - Physical Exam General Appearance: alert, no apparent distress EENT: No scleral icterus Extremities: inflammation (Dorsum of right foot with residual erythema which is less intense compared to prior; still with significant maceration which is most prominent medially; incision and drainage site with clean base and no residual purulence or fluctuance; 2+ edema of dorsal foot) Lymphatic: other (Lymphangitis in right lower extremity slowly resolving) - Time Spent With Patient Time Spent with Patient: greater than 25 minutes Time Spent with Patient: Greater than 25 minutes spent on this patients care, greater than 50% of time spent counseling, educating, and coordinating care regarding the above mentioned plan. ICD10 Worksheet Patient Problems: Problems Problem Status Onset Cellulitis Acute
--- NOTE | 2018-07-28 15:36 | ASMTCMCOM ---
CM Note CM Note Notes: Met with pt to review dc plan. Pt will stay for another few days, per ID foot still looks red. CM will reserve bed at the longterm when pt ready to dc. CM scheduled and appt with Mellissa Amaro at [facility] on August 01 at 11am, instructions written in discharge instructions. Pt has brochure with number and address. DC Plan: [facility] Date Signed: 07/28/2018 03:35 PM Electronically Signed By:Olga Harp RN
[2018-07-29] MEDS: ENOXAPARIN 40 MG/0.4 ML SYR SC SCH (09:10)
[2018-07-29] MEDS: VANCOMYCIN 1.5 GM in NS 250 ML IV SCH ×2 (10:04→22:25)
--- NOTE | 2018-07-29 12:46 | HOSPPROG ---
Hospitalist Progress Note Assessment/Plan: 57-year-old homeless male admitted for right foot cellulitis # right lower extremity foot wound w associated cellulitis, lymphangitis - s/p I &D with MRSA and GAS on Cx, imaging negative for osteo -continue IV vancomycin, discussed with ID, could possibly dc on oral doxy plus Amox -pain controlled # macrocytosis without anemia - B12 folate normal, possibly due to etoh # tobacco abuse -recommend cessation -doesn't want a patch or gum *homelessness *dvt pplx - lovenox *dispo - cont inpt, CM consult for homeless status Subjective: PT doing ok, little pain at rest, but more painful with ambulation. He is using assist device either walker or crutches. No fevers. Taking po well. Objective: Vital Signs Temp Pulse Resp BP Pulse Ox 36.5 C 77 14 130/79 H 95 07/29/18 08:00 07/29/18 08:00 07/29/18 08:00 07/29/18 08:00 07/29/18 08:00 Microbiology 07/25/18 14:06 Gram Stain - Final Foot - Swab Wound Culture - Final MRSA Streptococcus Pyogenes Grp A Laboratory Results 07/28/18 07:15 07/28/18 07/29/18 07/30/18 05:59 05:59 05:59 Intake Total 2800 850 Balance 2800 850 - Physical Exam Constitutional: no apparent distress Eyes: PERRL Ears, Nose, Mouth, Throat: moist mucous membranes Cardiovascular: regular rate and rhythym Respiratory: no respiratory distress, clear to auscultation Gastrointestinal: normoactive bowel sounds, soft, non-tender abdomen Skin: warm, other (RLE dressing c/d/i, distal sensation intact) Musculoskeletal: full muscle strength Neurologic: AAOx3 Psychiatric: interacting appropriately ICD10 Worksheet Patient Problems: Problems Problem Status Onset Cellulitis Acute
--- NOTE | 2018-07-29 14:02 | PCMIDPN ---
Assessment/Plan: Assessment/Plan: * Right lower extremity cellulitis with small subcutaneous abscess right 5th toe status post incision and drainage: Cultures with growth of MRSA and group A Streptococcus. Continued clinical evidence of resolving cellulitis. Still with some areas of denuded skin which will require ongoing wound care. Will continue vancomycin until tomorrow with plans to transition to amoxicillin 1 g orally twice daily and doxycycline 100 mg orally twice daily x7 additional days. Anticipate follow-up in our office post hospital discharge to ensure continued resolution. * Healthcare maintenance: Hepatitis A total antibody negative. Received initial hepatitis a vaccine and will require 2nd vaccine in 6 months. 07/29/18 14:00 Subjective: Patient notes less foot pain. Ambulating without difficulty. Mild pruritis at site of prior IV on right arm. Objective: Vital Signs Temp Pulse Resp BP Pulse Ox 36.5 C 77 14 130/79 H 95 07/29/18 08:00 07/29/18 08:00 07/29/18 08:00 07/29/18 08:00 07/29/18 08:00 Microbiology 07/25/18 14:06 Gram Stain - Final Foot - Swab Wound Culture - Final MRSA Streptococcus Pyogenes Grp A Laboratory Results 07/28/18 07:15 07/28/18 07/29/18 07/30/18 05:59 05:59 05:59 Intake Total 2800 850 Balance 2800 850 - Physical Exam General Appearance: alert, no apparent distress EENT: No scleral icterus Cardiac/Chest: regular rate, rhythm Extremities: inflammation (Right foot with decreased erythema and diffuse areas of denuded skin over dorsal aspect of foot; edema has decreased with intensity of erythema significantly decreased) Skin: other (Small area of thrombophlebitis with adjacent contact dermatitis in right upper extremity) Lymphatic: other (Lymphangitis continues to resolve with more dusky appearance) ICD10 Worksheet Patient Problems: Problems Problem Status Onset Cellulitis Acute
--- NOTE | 2018-07-29 15:55 | ASMTCMCOM ---
CM Note CM Note Notes: CM met with patient, he states he is dreading going to the [facility] but understands we will call to get him a bed on day of discharge. Patient likely to start antibiotics by mouth tomorrow. CM reviewed appointment with PCP at [facility] for 08/01/18 @ 11am. CM to follow. D/C plan: [facility] bed Date Signed: 07/29/2018 03:55 PM Electronically Signed By:Karla Davis
--- NOTE | 2018-07-30 08:33 | HOSPPROG ---
Hospitalist Progress Note Assessment/Plan: 57-year-old homeless male presents the emergency room with complaints of foot wound. # right lower extremity foot wound w associated lymphangitis (MRSA) & stept A - IV vancomycin -s/p I & D with Dr Mcdowell -no osteo on imaging # pain -no significant pain # macrocytosis without anemia -B12 folate normal -potentially related alcohol use # tobacco abuse -recommend cessation -doesn't want a patch or gum *homelessness #plan: dc on 1 g Amoxicillin orally twice daily and doxycycline 100 mg orally twice daily x7 additional days. Met w patient w surgical PABri. Subjective: Brandon is concerned about being outside and caring for his wound. Objective: Vital Signs Temp Pulse Resp BP Pulse Ox 36.6 C 66 15 112/75 96 07/29/18 23:00 07/29/18 23:00 07/29/18 23:00 07/29/18 23:00 07/29/18 23:00 Laboratory Results 07/30/18 04:30 07/29/18 07/30/18 07/31/18 05:59 05:59 05:59 Intake Total 850 700 Balance 850 700 - Physical Exam Constitutional: no apparent distress, appears nourished, not in pain Eyes: PERRL Ears, Nose, Mouth, Throat: hearing normal Respiratory: no respiratory distress Skin: warm, other (right foot is red, excortiated, looks better since monday.) Musculoskeletal: generalized weakness Neurologic: AAOx3 Psychiatric: interacting appropriately ICD10 Worksheet Patient Problems: Problems Problem Status Onset Cellulitis Acute
[2018-07-30 08:52] VITALS: BP 120/89
[2018-07-30] MEDS: ENOXAPARIN 40 MG/0.4 ML SYR SC SCH (09:01)
[2018-07-30] MEDS: VANCOMYCIN 1.5 GM in NS 250 ML IV SCH (09:01)
--- NOTE | 2018-07-30 10:22 | ASMTDCNOTE ---
Case Management Discharge Discharge Order Complete? Answers: Yes Patient to Obtain Answers: Independently Medications Transportation Arranged Answers: Bus Tokens Transport will Pick (Date 07/30/2018 12:00 AM & Time) Family Notified Answers: No Notes: none Discharge Comments Notes: Pt to discharge to [facility] where he is already a client. Hospital jail bed reserved for him tonight as pt has not been to the jail since April and is unsure of his status there. CM also provided brochure on [facility] and encouraged pt to contact Amy and [facility] social work for help regarding career counseling and jail housing solutions. Pt expressed understanding. Pt given bus pass for transport and is planning to obtain medications at [facility] within the hospital. 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 No further CM needs noted at this time. Date Signed: 07/30/2018 10:21 AM Electronically Signed By:Nay Arzola
--- NOTE | 2018-07-30 10:27 | ASDISCHSUM ---
Discharge Information Plan Status:Homeless/[facility] Medically Cleared to Leave:07/30/2018 Discharge Date:07/30/2018 CM D/C Disposition:Streets (Homeless) ADT D/C Disposition:Home, Routine, Self-Care Projected Discharge Date:07/30/2018 Transportation at D/C:Bus Ticket Discharge Delay Reason: Follow-Up Date:07/30/2018 Discharge Slot: Final Diagnosis:cellulitis Placement Information Patient Contact Information Contact Name:ZEINA Relationship: Address: Work Phone: City: [facility] Phone: State/[email or web address] Code: Email: Financial Information Financial Class:Medicaid Primary Plan Desc:[employer] [place] Primary Plan Number:[id number] Secondary Plan Desc: Secondary Plan Number: Assessment Information [facility] CM Progress Note CM Note CM Note Notes: Pt who is homeless in with foot cellulitis, reports daily ETOH use. PT eval pending. Pt on IV vanco now, will see if he improves and may be able to d/c on oral antibiotics. ID not consulted yet. Pt may want snf bed and follow up at [facility]. CM to follow. D/c plan is TBD Date Signed: 07/25/2018 01:10 PM Electronically Signed By:JORY Kiser [facility] CM Progress Note CM Note CM Note Notes: Met with pt, he was admitted to the hospital for foot cellulitis, due to ill fitting shoes he developed a foot wound that got infected. He is a homeless gentleman, he sometimes stays at the snf and has been through [facility], although he doesn't always want to stay there and will go to other places. He does not have a pcp and does not have much of a past medical history. For a discharge plan, he may want a reserved bed at the snf. The physical therapist has given him a pair of crutches to use and he has an appt scheduled for at 11am with Mellissa Amaro at [facility]. DC Plan: [facility] Date Signed: 07/26/2018 04:01 PM Electronically Signed By:Olga Harp RN [facility] ADALI Progress Note CM Note CM Note Notes: Met with pt to review dc plan. Pt will stay for another few days, per ID foot still looks red. CM will reserve bed at the snf when pt ready to dc. CM scheduled and appt with Mellissa Amaro at [facility] on August 01 at 11am, instructions written in discharge instructions. Pt has brochure with number and address. DC Plan: [facility] Date Signed: 07/28/2018 03:35 PM Electronically Signed By:Olga Harp RN [facility] Progress Note CM Note CM Note Notes: CM met with patient, he states he is dreading going to the [facility] but understands we will call to get him a bed on day of discharge. Patient likely to start antibiotics by mouth tomorrow. CM reviewed appointment with PCP at [facility] for 08/01/18 @ 11am. CM to follow. D/C plan: [facility] bed Date Signed: 07/29/2018 03:55 PM Electronically Signed By:Karla Davis Case Management Discharge Plan Note Case Management Discharge Discharge Order Complete? Answers: Yes Patient to Obtain Answers: Independently Medications Transportation Arranged Answers: Bus Tokens Transport will Pick (Date 07/30/2018 12:00 AM & Time) Family Notified Answers: No Notes: none Discharge Comments Notes: Pt to discharge to [facility] where he is already a client. Hospital snf bed reserved for him tonight as pt has not been to the snf since April and is unsure of his status there. CM also provided brochure on [facility] and encouraged pt to contact Amy and [employer] social work for help regarding career counseling and alf housing solutions. Pt expressed understanding. Pt given bus pass for transport and is planning to obtain medications at [facility] within the hospital. 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 No further CM needs noted at this time. Date Signed: 07/30/2018 10:21 AM Electronically Signed By:Nay Arzola Intervention Information
--- NOTE | 2018-07-30 10:28 | ASMTLACE ---
LACE Length of stay for Answers: 4-6 days current admission Acuity / Level of Answers: Yes Care: Did the patient have an inpatient admission? # of Emergency department Answers: 1-2 visits in the last 6 months Social determinants Answers: History of substance abuse (ETOH, street drugs, prescription drugs, etc.) Homelessness (street, half-way) Score: 14 Date Signed: 07/30/2018 10:27 AM Electronically Signed By:Nay Arzola
--- NOTE | 2018-07-30 11:48 | GDS ---
[f rep st] DISCHARGE SUMMARY DISCHARGE DIAGNOSES: 1. Right lower foot extremity cellulitis with associated lymphangitis. 2. Pain due to this. 3. Macrocytosis. 4. Tobacco abuse. 5. Homelessness. CONSULTATION: 1. Dr. Maximo Hills. 2. Dr. Mcdowell. Briefly, the patient is a 57-year-old gentleman who had been wearing a shoe that was too tight and he developed excessive rubbing on his foot. He also describes being exposed to snow and slush when walking to and from work. He developed breakdown of the skin over the dorsal aspect of the foot with some redness and swelling. He was treated for a right lower extremity cellulitis with lymphangitis with vancomycin. He continued to improve. He had an area of some purulent drainage, and subsequently was seen by Dr. Mcdowell. She I and D'd this area. The skin remains excoriated, but not as swollen. He will be discharged, and further follow [facility] with [facility], as well as Dr. Hills. HOSPITAL COURSE PER PROBLEM: 1. Right lower extremity foot cellulitis with associated lymphangitis. His culture grew out MRSA and strep A. He was treated IV vancomycin. He will be discharged on amoxicillin and doxycycline. 2. Pain. Doing quite well, ambulating. 3. Macrocytosis, likely from alcohol use. 4. Nicotine dependence. Recommended cessation. He did not want a patch or gum. 5. Homelessness. 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 He also has a friend in the [place] area he may be able to stay with. DISCHARGE CONDITION: Stable. Blood pressure is 112/75, respiratory rate of 15 , pulse is 66, temperature is 36.6 Celsius, O2 sat on room air is 96%. MEDICATIONS AT DISCHARGE: Please see the EMR. DISCHARGE INSTRUCTIONS: 1. Have been written out in detail, including following up with Dr. Hills and the [facility]. He also has an appointment with [facility] on August 01 at 10:45 in the morning. 2. He will need hepatitis A vaccination in 6 months. 3. Stay out of the sun, and wear sunblock while he is on the antibiotics. If he develops greater than 3 liquidy stools, to see his doctor immediately. Copy requested to: Dr. Mcdowell /[id number]/MODL MTDD
--- NOTE | 2018-08-09 11:10 | GOP ---
[f rep st] OPERATIVE REPORT DATE OF OPERATION: 07/27/2018 SURGEON: Radha Mcdowell MD ANESTHESIA: IV sedation. ANESTHESIOLOGIST: Jacoby Rios MD. PREOPERATIVE DIAGNOSIS: Methicillin-resistant Staphylococcus aureus abscess. POSTOPERATIVE DIAGNOSIS: Methicillin-resistant Staphylococcus aureus abscess. PROCEDURE PERFORMED: Incision and drainage, 5th toe. FINDINGS: Small fluid collection. No bone exposed. No purulence. ESTIMATED BLOOD LOSS: Minimal. INDICATIONS: The patient is a 57-year-old with cellulitis of his foot, concern of fluid collection on his left fifth toe. Right 5th toe pain was out of proportion so I was unable to perform an incision and drainage at bedside. DESCRIPTION OF PROCEDURE: Patient was brought into the operating room, placed supine on the table, and IV sedation was performed. His foot was prepped and draped in the usual sterile fashion. I performed a cruciate incision. There was scant fluid that was expressed. There was some phlegmon tissue. Wound was irrigated and dressed. He was awakened in the operating room, transferred to PACU in stable condition. /[id number]/MODL MTDD
== END 2018-07-30 13:30 | disposition home or self-care (01) | DRG 383 ==
LOC: F3E 11:30 → OBSVTOIN 07-25 13:40
PROVIDERS: ADMIT Internal Medicine; ATTEND Internal Medicine
PROC: 0J9Q3ZZ Drainage of Right Foot Subcutaneous Tissue and Fascia, Percutaneous Approach (ICD-10-PCS; principal; 2018-07-27 09:00)
DX: L03.115 Cellulitis of right lower limb (principal); B95.62 Methicillin resistant Staphylococcus aureus infection as the cause of diseases classified elsewhere; L03.125 Acute lymphangitis of right lower limb; D75.89 Other specified diseases of blood and blood-forming organs; B95.5 Unspecified streptococcus as the cause of diseases classified elsewhere; F17.200 Nicotine dependence, unspecified, uncomplicated; Z72.89 Other problems related to lifestyle; Z59.0 Homelessness; Z80.9 Family history of malignant neoplasm, unspecified
CPT/HCPCS: 82607-90; 86708-90; 96365; 97116-GP; 97161-GP; 97530-GP; A9585; G0378; J1650; J2001; J2704; J3370